=== PATIENT | female | born 1965 | race Caucasian/White ===

== ENCOUNTER 2019-04-17 12:59 | Outpatient (RCR) | payer OTHER | END 2019-04-20 | LOC: PT 12:59 | PROVIDERS: ATTEND Neurological Surgery | DX: M51.16 Intervertebral disc disorders with radiculopathy, lumbar region (principal) | CPT/HCPCS: 97139 ==

== ENCOUNTER 2022-01-05 10:58 | Emergency (ER) | payer OTHER ==
[~2022-01-05] VITALS: Ht 157.5 cm; Wt 70.3 kg
[2022-01-05] MEDS ORDERED: IBUPROFEN 600 MG TAB PO STA (11:12)
[2022-01-05] MEDS ORDERED: BENZONATATE200 MG PO (13:20)
[2022-01-05] MEDS ORDERED: IBUPROFEN600 MG PO (13:20)
== END 2022-01-05 13:30 | disposition home or self-care (01) ==
LOC: ER 11:37
DX: U07.1 COVID-19 (principal); I10 Essential (primary) hypertension; E11.9 Type 2 diabetes mellitus without complications; Z88.2 Allergy status to sulfonamides
CPT/HCPCS: 99283; U0002